=== PATIENT | female | born 1975 | race Hispanic/Latino ===

== ENCOUNTER → 2021-02-18 | Outpatient (CLI) | payer SELFPAY ==
[~2021-02-18] MED LIST: IOPAMIDOL 370 MG/ML 200 ML INFUS..BTL INJ ONE; SODIUM CHLORIDE 0.9% 50ML 50 ML ONE
== END ==
LOC: CT 16:57
PROVIDERS: ATTEND Pediatrics
DX: R10.11 Right upper quadrant pain (principal); R10.32 Left lower quadrant pain
CPT/HCPCS: 74177; Q9967